=== PATIENT | female | born 1980 | race Hispanic/Latino ===

== ENCOUNTER 2017-05-24 13:22 | Outpatient (CLI) | payer MEDICAID ==
--- NOTE | 2017-05-24 17:04 | XRay Report ---
FINAL REPORT EXAM: XR SHOULDER 2+V RT HISTORY: SHOULDER PAIN TECHNIQUE: AP, Y, and oblique views of the right shoulder PRIORS: None. FINDINGS: There is no evidence of acute fracture or dislocation. Joint spaces are maintained and bony mineralization is normal. Soft tissues are unremarkable. IMPRESSION: No acute abnormality identified in the right shoulder.
== END 2017-05-24 13:23 | disposition home or self-care (01) ==
LOC: SPVIMAG 13:22
PROVIDERS: ATTEND Orthopaedic Surgery Sports Medicine
DX: M25.511 Pain in right shoulder (principal)

== ENCOUNTER 2018-07-20 05:55 | Observation (INO) | payer MEDICAID ==
[2018-07-20] MEDS ORDERED: ECOTRIN PO ONE (06:23)
[2018-07-20] MEDS ORDERED: NACL 0.9% 500 ML 500 ML IV SCH (07:00)
[2018-07-20] MEDS ORDERED: HEPARIN/NS 5000 UNIT/500ML(CATH LAB) 1,000 ML IR ONE (08:40)
[2018-07-20] MEDS: SUBLIMAZE ONE ×2 (09:04→09:12)
[2018-07-20] MEDS: VERSED ONE ×2 (09:04→09:12)
[2018-07-20] MEDS: NITROGLYCERIN SYRINGE 3 ML ONE ×2 (09:04→09:20)
[2018-07-20] MEDS: XYLOCAINE 2% INFILTRATI ONE ×2 (09:04→09:16)
[2018-07-20] MEDS: CALAN ONE ×2 (09:04→09:20)
[2018-07-20] MEDS: HEPARIN 10,000 UNITS/10 ML ONE ×3 (09:05→09:29)
[2018-07-20] MEDS ORDERED: PLAVIX ONE (09:42)
[2018-07-20] MEDS ORDERED: ALUM-MAG HYDROX-SIMETH 200-200-20MG/5ML ONE (09:42)
--- NOTE | 2018-07-20 11:45 | Cardiac Catherization Report ---
CARDIAC CATHETERIZATION REFERRING PHYSICIAN: 1. Tania Hinojosa MD 2. ____. INDICATION: The patient is a pleasant 38-year-old female with history of diabetes, hypertension, hyperlipidemia, obesity, who has an abnormal nuclear stress test, persistent chest pain and family history. She is referred for left heart catheterization. Risks, benefits, and potential alternatives explained at length prior to obtaining informed consent. The patient is already on multiple antianginals. Risks, benefits, and alternatives explained at length prior to obtaining informed consent. PROCEDURE IN DETAIL: The patient was brought to catheterization lab in postoperative state, prepped and draped in sterile fashion. Dimitri's test in right hand was normal. A 2 mL of 2% lidocaine used to anesthetize the right wrist. A standard 6-Icelandic hydrophilic sheath used to cannulate the right radial artery via modified Seldinger technique. All exchanges performed to exchange a J-tip guidewire. JL3.5 catheter used to engage the left main. No dampening or ventricularization. Cineangiography performed in all projections. JR4 catheter was used to cross the aortic valve under fluoroscopic guidance. Left ventriculography performed in 30 YOUNG and 30 THAI projections via hand injections, catheter flushed. Manual pullback performed with continuous pressure monitoring. Catheter used to engage the right coronary. No dampening or ventricularization. Cineangiography performed in ____ projections. Next, catheter removed from the body of wire. DATA: Aortic pressure is 130/80, LV pressure is 130, LVEDP of 15 mmHg. Left ventriculography revealed normal systolic performance with estimated ejection fraction of 55-60%. No evidence of aortic stenosis. CORONARY ANATOMY: Right dominant system. Left main without significant disease, bifurcates in left anterior descending and left circumflex. LAD is a moderate sized vessel, courses anterior intergroove, wraps around the apex. No significant disease in LAD or diagonal system. Left circumflex is a moderate sized vessel, courses AV groove. There is a 30-40% proximal left circumflex stenosis. There is 25% stenosis in the proximal OM1. Right coronary is a moderate sized vessel, courses AV groove. There is an ulcerated 90% stenosis in the distal RCA, tortuous. This 90% is ulcerated, hazy, certainly the culprit vessel. At this point, we turned our attention to PCI. A JR4 guide was used to engage the right coronary without difficulty. Heparin given. Abnormal ACT confirmed. Plavix and aspirin loaded. Prowater used to cross the lesion without difficulty, is a Resolute Shashi drug-eluting stent, 2.75 x 18 direct stented at 12 KARINE for 30 seconds. Excellent angiographic result. Intravascular ultrasound was performed, multiple passes were made. IVUS reveals a well expanded and well apposed with a stent, proximal and mid RCA without significant disease. Mild diffuse disease is noted though. Wire and IVUS removed. Excellent final angiographic result. No complications. The patient tolerated the procedure well. MARLEY 3 flow, 0% residual stenosis. I directly supervised the administration of moderate sedation from 9:10 a.m. to 9:46 a.m. CONCLUSIONS: 1. Severe single vessel coronary artery disease with culprit ulcerated hazy 90% distal right coronary stenosis. A. Successful IVUS guided PCI placement of drug-eluting stent (Resolute Shashi 2.75 x 18 mm) with excellent final angiographic and ultrasonographic results. 2. Nonobstructive disease in the left system including a 30-40% proximal left circumflex and 25% proximal OM1. 3. Patent left main, LAD. 4. Normal left ventricular systolic performance, estimated ejection fraction of 55-60%. 5. No evidence of aortic stenosis. 6. Normal LVEDP. At this point, the patient needs aggressive risk factor modification given how young she is and her underlying disease pattern needs aggressive therapy. Initiate Plavix, aspirin. Continue Imdur, beta chad, SRIDHAR, and continue high dose statin therapy. Follow up with Dr. José Miguel Hinojosa. Results of procedure explained at length to the patient and family. All questions and concerns were addressed. JOB# [id number] SBM/NTS
[2018-07-20] MEDS ORDERED: SUBLIMAZE IV ONE (12:01)
[2018-07-20] MEDS ORDERED: SUBLIMAZE ONE (12:33)
[2018-07-20] MEDS ORDERED: D50W (25GM) Syringe IV PRN (15:17)
--- NOTE | 2018-07-20 15:17 | Short Stay Summary ---
Short Stay Documentation Date of service: 07/20/18 - History H&P: obtained from office - Allergies and Medications Current Medications: Allergies acetaminophen [From Vicodin] Allergy (Unverified 07/20/18 05:56) Hives hydrocodone [From Vicodin] Allergy (Verified 07/20/18 12:04) Hives oxycodone Allergy (Verified 07/20/18 12:04) Hives Penicillins Allergy (Verified 07/20/18 12:04) Rash Home Medications Medication Instructions Recorded Confirmed Last Taken Type ALBUTEROL Inhaler (OR & NICU) 2 puff IH QID PRN 07/20/18 07/20/18 07/19/18 History [Proair] Advair 250-50 Diskus 1 inh PO BID 07/20/18 07/20/18 07/19/18 History Aspirin [Lo-Dose Aspirin EC] 81 mg PO DAILY 07/20/18 07/20/18 07/19/18 History Atorvastatin [Lipitor Tab] 80 mg PO QHS 07/20/18 07/20/18 07/19/18 History Cyclobenzaprine [Flexeril] 10 mg PO TID PRN 07/20/18 07/20/18 07/19/18 History Glimepiride [Amaryl] 4 mg PO QAM 07/20/18 07/20/18 07/19/18 History ISOSORBIDE MONOnitrate [Imdur ER] 30 mg PO DAILY 07/20/18 07/20/18 07/19/18 History Linagliptin [Tradjenta] 5 mg PO QDAY 07/20/18 07/20/18 07/19/18 History Lisinopril [Zestril TAB] 10 mg PO QDAY 07/20/18 07/20/18 07/19/18 History Metoprolol Succinate [Toprol Xl] 25 mg PO DAILY 07/20/18 07/20/18 07/19/18 History Naproxen [Naprosyn] 500 mg PO DAILY 07/20/18 07/20/18 07/19/18 History Omeprazole 20 mg PO DAILY 07/20/18 07/20/18 07/19/18 History Ziprasidone [Geodon] 60 mg PO BID 07/20/18 07/20/18 07/19/18 History levETIRAcetam [Keppra] 500 mg PO BID 07/20/18 07/20/18 07/19/18 History Active Medications Aspirin (Aspirin) 325 mg PO QDAY SRINIVASAN Atorvastatin Calcium (Lipitor) 80 mg PO QHS SRINIVASAN Clopidogrel Bisulfate (Plavix) 75 mg PO QDAY [facility] Sodium Chloride (Nacl 0.9% 500 Ml) 500 mls @ 50 mls/hr IV DIRECT SRINIVASAN Stop: 07/20/18 16:59 Last Admin: 07/20/18 07:03 Dose: 50 mls/hr Documented by: Isosorbide Mononitrate (Imdur) 30 mg PO DAILY SRINIVASAN Lisinopril (Zestril) 10 mg PO QDAY SRINIVASAN Metoprolol Succinate (Toprol Xl) 25 mg PO DAILY SRINIVASAN - Physical exam General appearance: no acute distress Integumentary: no rash, no growths, no abnormal pigmentation HEENT: Atraumatic, PERRLA Lungs: Clear to auscultation Heart: Regular rate, Normal S1, Normal S2 Gastrointestinal: normal, normoactive bowel sounds Extremities: no ischemia, pulses intact, pulses symmetrical Neurological: Normal gait, Normal speech, Strength at 5/5 X4 ext - Brief post op/procedure progress note Date of procedure: 07/20/18 Pre-op diagnosis: cp, abnormal stress test Post-op diagnosis: other (CAD) Procedure: LHC with PCI - see dictated cath report Anesthesia: local Estimated blood loss: none Condition: stable - Disposition Condition at discharge: Good Disposition: DC-01 TO HOME OR SELFCARE - Discharge Diagnoses (1) CAD (coronary artery disease) Status: Chronic (2) Stented coronary artery Status: Chronic (3) HTN (hypertension) Status: Chronic (4) Hyperlipidemia Status: Chronic (5) Diabetes Status: Chronic (6) Obesity Status: Chronic Short Stay Discharge Plan Activity: advance as tolerated Diet: low fat, low cholesterol, low salt, diabetic Wound: open to air, keep clean and dry, per your surgeon's advice Follow up with: HAROLDO OSBORNE [Other] - 7 Days EMILY COLEMAN MD [Staff Physician] - 7 Days ([facility], 07/28/2018 @ 1:45PM) Prescriptions: Clopidogrel [Plavix] 75 mg PO QDAY #30 tablet
[2018-07-20] MEDS: HumaLOG SUB-Q SCH ×2 (17:31→23:00)
[2018-07-20] MEDS ORDERED: NON-FORMULARY (Atorvastatin [Lipitor] 80 MG) PO SCH (22:00)
[2018-07-21 05:37] VITALS: BP 116/72
[2018-07-21 06:30] LABS: Basophils # (Auto) 0.1 K/mm3 (0.0-0.1); Basophils % (Auto) 0.8 % (0.0-1.8); Eosinophils # (Auto) 0.3 K/mm3 (0.0-0.4); Eosinophils % (Auto) 4.4 % (0.0-4.3); Hematocrit 39.6 % (30.3-42.9); Hemoglobin 13.2 gm/dl (10.1-14.3); Lymphocytes # (Auto) 2.6 K/mm3 (1.2-5.4); Lymphocytes % (Auto) 37.8 % (13.4-35.0); Mean Corpuscular HGB Conc 33 % (30-34); Mean Corpuscular Volume 92 fl (79-97); Monocytes # (Auto) 0.6 K/mm3 (0.0-0.8); Monocytes % (Auto) 9.4 % (0.0-7.3); Platelet Count 263 K/mm3 (140-440); Red Blood Count 4.32 M/mm3 (3.65-5.03)
[2018-07-21 06:51] LABS: Creatine Kinase MB 2.2 ng/mL (0.0-4.0)
[2018-07-21 06:54] LABS: BUN/Creatinine Ratio 13; Blood Urea Nitrogen 8 mg/dL (7-17); Calcium 8.6 mg/dL (8.4-10.2); Hemolysis Index 8
--- NOTE | 2018-07-21 08:31 | XRay Report ---
AP CHEST: HISTORY: chest pain AP view of the chest demonstrates a normal mediastinal and cardiac contour with clear lungs and normal bony and soft tissue structures. IMPRESSION: Unremarkable AP chest.
[2018-07-21] MEDS: HumaLOG SUB-Q SCH ×2 (09:19→09:34)
[2018-07-21] MEDS ORDERED: PLAVIX PO SCH (10:00)
[2018-07-21] MEDS ORDERED: ZESTRIL PO SCH (10:00)
[2018-07-21] MEDS ORDERED: IMDUR PO SCH (10:00)
[2018-07-21] MEDS ORDERED: ASPIRIN PO SCH (10:00)
[2018-07-21] MEDS ORDERED: TOPROL XL PO SCH (10:00)
--- NOTE | 2018-07-21 10:53 | Progress Note ---
Assessment and Plan no cp ecg wnl rra site c/d/i no sxs dapt compliance stressed w/ pt at length may dc home f/u with Dr Linus Hinojosa Objective Vital Signs Temp Pulse Pulse Resp Resp BP BP 07/21/18 09:13 97.9 F 07/21/18 04:05 98.4 F 76 12 116/72 07/21/18 00:00 71 07/20/18 23:19 98.0 F 83 12 110/66 07/20/18 22:00 20 07/20/18 19:36 98.3 F 83 12 100/70 07/20/18 18:12 89 07/20/18 17:31 97.5 F L 07/20/18 17:29 85 18 127/75 07/20/18 16:15 80 18 116/79 07/20/18 16:00 79 07/20/18 15:00 87 18 114/71 07/20/18 14:00 88 18 121/76 07/20/18 13:30 84 18 117/77 07/20/18 13:00 91 H 17 125/83 07/20/18 12:38 15 07/20/18 12:30 98 H 18 125/82 07/20/18 12:00 101 H 19 123/80 07/20/18 11:30 98 H 23 137/82 07/20/18 11:00 92 H 21 119/76 BP Pulse Ox 07/21/18 09:13 07/21/18 04:05 95 07/21/18 00:00 07/20/18 23:19 95 07/20/18 22:00 07/20/18 19:36 96 07/20/18 18:12 114/75 07/20/18 17:31 07/20/18 17:29 97 07/20/18 16:15 98 07/20/18 16:00 07/20/18 15:00 98 07/20/18 14:00 98 07/20/18 13:30 96 07/20/18 13:00 94 07/20/18 12:38 07/20/18 12:30 97 07/20/18 12:00 98 07/20/18 11:30 98 07/20/18 11:00 97 - Labs and Meds Cardiac Enzymes 07/21/18 Range/Units 04:44 CK-MB (CK-2) 2.2 (0.0-4.0) ng/mL CBC 07/21/18 Range/Units 04:44 WBC 6.8 (4.5-11.0) K/mm3 RBC 4.32 (3.65-5.03) M/mm3 Hgb 13.2 (10.1-14.3) gm/dl Hct 39.6 (30.3-42.9) % Plt Count 263 (140-440) K/mm3 Lymph # 2.6 (1.2-5.4) K/mm3 [place] # 0.6 (0.0-0.8) K/mm3 Eos # 0.3 (0.0-0.4) K/mm3 Baso # 0.1 (0.0-0.1) K/mm3 Comprehensive Metabolic Panel 07/21/18 Range/Units 04:44 Sodium 138 (137-145) mmol/L Potassium 4.1 (3.6-5.0) mmol/L Chloride 104.0 (98-107) mmol/L Carbon Dioxide 22 (22-30) mmol/L BUN 8 (7-17) mg/dL Creatinine 0.6 L (0.7-1.2) mg/dL Glucose 108 H (65-100) mg/dL Calcium 8.6 (8.4-10.2) mg/dL
== END 2018-07-21 11:40 | disposition home or self-care (01) ==
LOC: CATHLABREC 05:55 → 4A 11:07
PROVIDERS: ADMIT Internal Medicine; ATTEND Internal Medicine
DX: I25.110 Atherosclerotic heart disease of native coronary artery with unstable angina pectoris (principal); I10 Essential (primary) hypertension; E78.5 Hyperlipidemia, unspecified; E11.9 Type 2 diabetes mellitus without complications; E66.9 Obesity, unspecified; F31.9 Bipolar disorder, unspecified; F17.210 Nicotine dependence, cigarettes, uncomplicated; Z95.5 Presence of coronary angioplasty implant and graft; Z88.0 Allergy status to penicillin; Z88.8 Allergy status to other drugs, medicaments and biological substances
CPT/HCPCS: 36415; 71045; 80048; 82550; 82553; 82962; 84484; 85025; 85347; 92978; 93005; 93010; 93458; 96372; 99406; A9270; C1753; C1769; C1874; C1887; C1894; C9600; G0378; J1644; J2250; J3010; J7040; 92928; Q9967

== ENCOUNTER 2019-01-05 06:20 | Day surgery (SDC) | payer MEDICAID ==
[2019-01-05] MEDS ORDERED: PLAVIX PO ONE (06:33)
[2019-01-05] MEDS ORDERED: NACL 0.9% 500 ML 500 ML ONE (06:40)
[2019-01-05] MEDS ORDERED: HALFPRIN EC PO ONE (06:41)
[2019-01-05] MEDS ORDERED: NACL 0.9% 500 ML 500 ML IV SCH (07:00)
[2019-01-05] MEDS ORDERED: HEPARIN 10,000 UNITS/10 ML ONE (07:57)
[2019-01-05] MEDS ORDERED: CALAN ONE (07:57)
[2019-01-05] MEDS ORDERED: NITROGLYCERIN SYRINGE 3 ML ONE (07:58)
[2019-01-05] MEDS: VERSED ONE ×2 (08:07→08:13)
[2019-01-05] MEDS: SUBLIMAZE ONE ×2 (08:07→08:13)
[2019-01-05] MEDS: XYLOCAINE 2% INFILTRATI ONE ×2 (08:08→08:15)
[2019-01-05] MEDS: HEPARIN/NS 5000 UNIT/500ML(CATH LAB) 1,000 ML IR ONE ×2 (08:08→08:15)
--- NOTE | 2019-01-05 09:21 | Cardiac Catherization Report ---
CARDIAC CATHETERIZATION REFERRING PHYSICIAN: Dr. José Miguel Hinojosa. INDICATION FOR PROCEDURE: The patient is a very pleasant 38-year-old female with multiple medical problems, who recently had a PCI of distal right coronary in June, has recurrent typical chest pain, referred for repeat left heart catheterization. Risks, benefits, and alternatives discussed at length prior to obtaining informed consent. PROCEDURE IN DETAIL: The patient was brought to catheterization lab in a postabsorptive state, prepped and draped in sterile fashion. Dimitri's test in right hand was normal. A 2 mL of 2% lidocaine used to anesthetize the right wrist. A standard 6-Nigerien hydrophilic sheath used to cannulate the right radial artery via modified Seldinger technique. All exchanges performed to exchange a J-tip guidewire. JL3.5 catheter used to engage the left main. No dampening or ventricularization. Cineangiography performed in all projections. JR4 catheter used to cross the aortic valve under fluoroscopic guidance. Left ventriculography performed in 30 YOUNG and 30 YORUBA projections via hand injections, catheter flushed. Manual pullback performed with continuous pressure monitoring. Catheter used to engage the right coronary. No dampening or ventricularization. Cineangiography performed in all projections. Next, catheter removed from the body over wire, sheath removed. Manual pressure used to achieve hemostasis. I directly supervised the administration of moderate sedation from 8:10 a.m. to 8:37 a.m. with fentanyl and Versed. CORONARY ANATOMY: This is a right dominant system. Right coronary is a moderate sized vessel, courses AV groove, distally bifurcates in posterior descending and posterolateral branch. The stent in the distal right coronary is widely patent. Diffuse small vessel disease is noted in the distal right coronary system. Left main is without significant disease, trifurcates into left anterior descending and left circumflex and ramus intermedius. Left circumflex, moderate sized vessel, courses AV groove. There is a 20-30% stenosis in the mid left circumflex, moderate diffuse small vessel disease noted in the distal left circumflex system. LAD is a moderate sized vessel, courses anterior intergroove, wraps around the apex. It is a moderate sized vessel. Normal tapering distally. No significant disease in the LAD or diagonal system. MARLEY 3 flow is noted throughout the system. CONCLUSIONS: 1. Mild to moderate nonobstructive epicardial coronary disease in this right dominant system. A. Distal right coronary stent patent. B. There is moderate diffuse distal small vessel disease noted. 2. Normal left ventricular systolic performance (estimated ejection fraction of 50-55%). 3. No evidence of aortic stenosis. 4. Normal LVEDP. At this point, I would recommend intensifying medical therapy. Continue aspirin, Imdur, Lipitor, Plavix and beta blockade. I would consider adding Ranexa. Discussed smoking cessation at length spent (~5 minutes) on this risk factor modification. Follow with Dr. José Miguel Hinojosa in the office. Standard radial care. JOB# [id number] VERONICA/SONIA GRAHAM
[2019-01-05] MEDS ORDERED: BABY ASPIRIN PO SCH (10:00)
--- NOTE | 2019-01-05 12:18 | Short Stay Summary ---
Short Stay Documentation Date of service: 01/05/19 - History H&P: obtained from office - Allergies and Medications Current Medications: Allergies acetaminophen [From Vicodin] Allergy (Unverified 07/20/18 05:56) Hives hydrocodone [From Vicodin] Allergy (Verified 07/20/18 12:04) Hives oxycodone Allergy (Verified 07/20/18 12:04) Hives Penicillins Allergy (Verified 07/20/18 12:04) Rash Home Medications Medication Instructions Recorded Confirmed Last Taken Type Atorvastatin [Lipitor] 80 mg PO QHS 07/20/18 01/05/19 01/04/19 History 80mg Clopidogrel [Plavix] 75 mg PO QDAY #30 tablet 07/20/18 01/05/19 01/04/19 Rx 75mg Glimepiride [Amaryl] 4 mg PO QAM 07/20/18 01/05/19 01/04/19 History 4mg ISOSORBIDE MONOnitrate [Imdur ER] 30 mg PO DAILY 07/20/18 01/05/19 01/04/19 History 30mg Linagliptin [Tradjenta] 5 mg PO QDAY 07/20/18 01/05/19 01/04/19 History 5mg Lisinopril [Zestril TAB] 10 mg PO QDAY 07/20/18 01/05/19 01/04/19 History 10mg Naproxen [Naprosyn] 500 mg PO DAILY 07/20/18 01/05/19 01/04/19 History 500mg Omeprazole 20 mg PO DAILY 07/20/18 01/05/19 01/04/19 History 20mg levETIRAcetam [Keppra] 1,000 mg PO BID 07/20/18 01/05/19 01/04/19 History 1000mg Aspirin 81 mg PO QDAY 01/05/19 01/05/19 01/04/19 History 81mg Hydroxyzine HCl [hydrOXYzine] 25 mg PO DAILY 01/05/19 01/05/19 01/04/19 History 25mg Ketoconazole 2% [Nizoral] 1 inch TRANSDERMA DAILY 01/05/19 01/05/19 01/04/19 History 1 Metoprolol Succinate [Toprol Xl] 25 mg PO DAILY 01/05/19 01/05/19 01/04/19 History 25mg Symbicort 160-4.5 Mcg Inhaler 2 puff INHALATION BID 01/05/19 01/05/19 01/04/19 History 2 traZODone [Desyrel] 100 mg PO DAILY 01/05/19 01/05/19 01/04/19 History 100mg Active Medications Aspirin (Baby Aspirin) 81 mg PO QDAY SRINIVASAN Sodium Chloride (Nacl 0.9% 500 Ml) 500 mls @ 50 mls/hr IV DIRECT SRINIVASAN Stop: 01/05/19 16:59 Last Admin: 01/05/19 06:48 Dose: 50 mls/hr Documented by: - Brief post op/procedure progress note Date of procedure: 01/05/19 Pre-op diagnosis: CAD Post-op diagnosis: same Procedure: [facility] - see dictated cath report Anesthesia: local Estimated blood loss: none Condition: stable - Disposition Condition at discharge: Good Disposition: DC-01 TO HOME OR SELFCARE - Discharge Diagnoses (1) CAD (coronary artery disease) Status: Chronic (2) Stented coronary artery Status: Chronic (3) Diabetes Status: Chronic (4) HTN (hypertension) Status: Chronic (5) Hyperlipidemia Status: Chronic (6) Obesity Status: Chronic Short Stay Discharge Plan Activity: advance as tolerated Diet: low fat, low cholesterol, low salt, diabetic Wound: open to air, keep clean and dry, per your surgeon's advice Follow up with: HAROLDO OSBORNE [Other] - 7 Days EMILY COLEMAN MD [Staff Physician] - 7 Days
[2019-01-05 13:19] VITALS: BP 111/74
== END 2019-01-05 13:00 | disposition home or self-care (01) ==
LOC: CATHLABREC 06:20
PROVIDERS: ATTEND Internal Medicine
DX: I25.10 Atherosclerotic heart disease of native coronary artery without angina pectoris (principal); I10 Essential (primary) hypertension; E78.5 Hyperlipidemia, unspecified; E11.9 Type 2 diabetes mellitus without complications; E66.9 Obesity, unspecified; J44.9 Chronic obstructive pulmonary disease, unspecified; G47.30 Sleep apnea, unspecified; M19.90 Unspecified osteoarthritis, unspecified site; F17.210 Nicotine dependence, cigarettes, uncomplicated; F31.9 Bipolar disorder, unspecified; Z88.0 Allergy status to penicillin; Z79.899 Other long term (current) drug therapy; Z79.82 Long term (current) use of aspirin; Z95.5 Presence of coronary angioplasty implant and graft; Z68.39 Body mass index [BMI] 39.0-39.9, adult; Z98.890 Other specified postprocedural states; Z80.8 Family history of malignant neoplasm of other organs or systems; Z82.49 Family history of ischemic heart disease and other diseases of the circulatory system; Z88.8 Allergy status to other drugs, medicaments and biological substances
CPT/HCPCS: 82962; 93005; 93010; 93458; 99156; 99157; C1887; C1894; J1644; J2250; J3010; J7040; Q9967

== ENCOUNTER 2020-06-04 06:46 | Observation (INO) | payer MEDICAID ==
[2020-06-04] MEDS ORDERED: ASPIRIN EC 325 MG TAB PO NR (07:24)
[2020-06-04 07:40] LABS: Basophils # (Auto) 0.1 K/mm3 (0.0-0.1); Eosinophils # (Auto) 0.2 K/mm3 (0.0-0.4); Eosinophils % (Auto) 4.3 % (0.0-4.3); Hematocrit 41.1 % (30.3-42.9); Hemoglobin 13.5 gm/dl (10.1-14.3); Lymphocytes # (Auto) 2.1 K/mm3 (1.2-5.4); Lymphocytes % (Auto) 36.7 % (13.4-35.0); Mean Corpuscular HGB Conc 33 % (30-34); Mean Corpuscular Volume 90 fl (79-97); Monocytes # (Auto) 0.5 K/mm3 (0.0-0.8); Monocytes % (Auto) 9.1 % (0.0-7.3); Platelet Count 233 K/mm3 (140-440); Red Blood Count 4.59 M/mm3 (3.65-5.03); Red Cell Distribution Width 14.1 % (13.2-15.2)
[2020-06-04 07:52] LABS: Blood Urea Nitrogen 7 mg/dL (7-17); Calcium 8.6 mg/dL (8.4-10.2); Hemolysis Index 2
[2020-06-04 07:54] LABS: BUN/Creatinine Ratio 10
[2020-06-04 08:00] LABS: INR 0.87 (0.87-1.13)
[2020-06-04] MEDS ORDERED: SODIUM CHLORIDE 0.9% 500 ML 500 ML IV SCH (08:00)
[2020-06-04] MEDS ORDERED: LIDOCAINE (2%) 20 MG/1 ML VIAL 20 ML MDV INFILTRATI ONE (08:16)
[2020-06-04] MEDS ORDERED: VERAPAMIL 5 MG/2 ML INJ ONE (08:16)
[2020-06-04] MEDS ORDERED: HEPARIN/NS 5000 UNIT/500ML 1,000 ML IR ONE (08:16)
[2020-06-04] MEDS ORDERED: NITROGLYCERIN SYRINGE 0 ML ONE (08:16)
[2020-06-04] MEDS ORDERED: MIDAZOLAM 2 MG/2 ML INJ ONE (08:17)
[2020-06-04] MEDS ORDERED: fentaNYL 100 MCG/2 ML INJ ONE (08:17)
[2020-06-04] MEDS ORDERED: ONDANSETRON 4 MG/2 ML INJ ONE (09:10)
[2020-06-04] MEDS: HEPARIN 10,000 UNITS/10 ML VIAL ONE ×2 (09:19→09:33)
[2020-06-04] MEDS ORDERED: HEPARIN/NS 5000 UNIT/500ML 500 ML IR ONE (09:30)
[2020-06-04] MEDS ORDERED: HEPARIN 10,000 UNITS/10 ML VIAL ONE (09:30)
[2020-06-04] MEDS ORDERED: ATROPINE 0.1% (1 MG/10 ML) CARDIAC SYRINGE ONE (09:44)
[2020-06-04] MEDS ORDERED: CLOPIDOGREL 75 MG TAB PO NR (11:23)
[2020-06-04] MEDS ORDERED: NITROGLYCERIN 0.4 MG TAB SUBL SL PRN (12:32)
[2020-06-04] MEDS ORDERED: DEXTROSE 50% IN WATER (25GM) 50 ML SYRINGE IV PRN (12:38)
[2020-06-04] MEDS ORDERED: ACETAMINOPHEN 500 MG TAB PO ONE (13:19)
[2020-06-04] MEDS: INSULIN LISPRO 100 UNIT/ML SUB-Q SCH (18:43)
[2020-06-04] MEDS: BUDESONIDE 0.5 MG/2 ML NEBU IH SCH (20:59)
[2020-06-04] MEDS: ARFORMOTEROL 15 MCG/2 ML NEBU IH SCH (20:59)
[2020-06-04] MEDS ORDERED: NON-FORMULARY EACH (Symbicort 160-4.5 Mcg Inhaler 2 PUFF) INHALATION SCH (22:00)
[2020-06-04] MEDS: levETIRAcetam 500 MG TAB PO SCH (22:00)
[2020-06-04] MEDS ORDERED: NON-FORMULARY EACH (Atorvastatin [Lipitor] 80 MG Tablet) PO SCH (22:00)
[2020-06-05] MEDS: INSULIN LISPRO 100 UNIT/ML SUB-Q SCH ×3 (01:30→13:19)
[2020-06-05 07:18] LABS: Basophils % (Auto) 0.8 % (0.0-1.8); Eosinophils # (Auto) 0.2 K/mm3 (0.0-0.4); Eosinophils % (Auto) 3.8 % (0.0-4.3); Hematocrit 42.1 % (30.3-42.9); Hemoglobin 13.8 gm/dl (10.1-14.3); Lymphocytes # (Auto) 1.9 K/mm3 (1.2-5.4); Lymphocytes % (Auto) 34.8 % (13.4-35.0); Mean Corpuscular HGB Conc 33 % (30-34); Mean Corpuscular Volume 89 fl (79-97); Monocytes # (Auto) 0.5 K/mm3 (0.0-0.8); Monocytes % (Auto) 9.2 % (0.0-7.3); Platelet Count 235 K/mm3 (140-440); Red Blood Count 4.72 M/mm3 (3.65-5.03); Red Cell Distribution Width 14.1 % (13.2-15.2)
[2020-06-05 07:37] LABS: Creatine Kinase MB 1.6 ng/mL (0.0-4.0)
[2020-06-05 07:38] LABS: Blood Urea Nitrogen 8 mg/dL (7-17); Calcium 8.6 mg/dL (8.4-10.2); Hemolysis Index 1
[2020-06-05 07:46] LABS: BUN/Creatinine Ratio 13
--- NOTE | 2020-06-05 08:20 | XRay Report ---
CHEST 1 VIEW INDICATION: post pci. COMPARISON: 07/21/2018 FINDINGS: Support devices: None. Heart: Within normal limits. Lungs/Pleura: No acute air space or interstitial disease. Additional findings: None. IMPRESSION: No acute findings. Signer Name: Markus Cote Jr, MD Signed: 06/05/2020 8:15 AM Workstation Name: [id number]
[2020-06-05] MEDS: BUDESONIDE 0.5 MG/2 ML NEBU IH SCH (09:09)
[2020-06-05] MEDS: ARFORMOTEROL 15 MCG/2 ML NEBU IH SCH (09:09)
[2020-06-05] MEDS ORDERED: NON-FORMULARY EACH (Metoprolol Succinate [Toprol Xl] 200 MG Tab.Er.24h) PO SCH (10:00)
[2020-06-05] MEDS ORDERED: LISINOPRIL 10 MG TAB PO SCH (10:00)
[2020-06-05] MEDS ORDERED: ASPIRIN EC 325 MG TAB PO SCH (10:00)
[2020-06-05] MEDS ORDERED: CLOPIDOGREL 75 MG TAB PO SCH ×2 (10:00)
[2020-06-05] MEDS ORDERED: METOPROLOL SUCCINATE XL 25 MG TAB PO SCH (10:00)
[2020-06-05] MEDS: levETIRAcetam 500 MG TAB PO SCH (10:38)
--- NOTE | 2020-06-05 11:32 | Short Stay Summary ---
Short Stay Documentation Date of service: 06/05/20 - History H&P: obtained from office - Allergies and Medications Current Medications: Allergies hydrocodone [From Vicodin] Allergy (Verified 07/20/18 12:04) Hives oxycodone Allergy (Verified 07/20/18 12:04) Hives Penicillins Allergy (Verified 07/20/18 12:04) Rash Home Medications Medication Instructions Recorded Confirmed Last Taken Type Atorvastatin [Lipitor] 80 mg PO QHS 07/20/18 06/04/20 06/03/20 History Clopidogrel [Plavix] 75 mg PO QDAY #30 tablet 07/20/18 06/04/20 06/03/20 Rx Glimepiride [Amaryl] 4 mg PO QAM 07/20/18 06/04/20 06/03/20 History ISOSORBIDE MONOnitrate [Imdur ER] 30 mg PO DAILY 07/20/18 06/04/20 06/03/20 History levETIRAcetam [Keppra] 1,000 mg PO BID 07/20/18 06/04/20 06/03/20 History lisinopriL [Zestril TAB] 10 mg PO QDAY 07/20/18 06/04/20 06/03/20 History Aspirin 81 mg PO QDAY 01/05/19 06/04/20 06/03/20 History Metoprolol Succinate [Toprol Xl] 25 mg PO DAILY 01/05/19 06/04/20 06/03/20 History Symbicort 160-4.5 Mcg Inhaler 2 puff INHALATION BID 01/05/19 06/04/20 06/03/20 History traZODone [Desyrel] 50 mg PO DAILY 01/05/19 06/04/20 06/03/20 History Doxepin [SINEquan] 25 mg PO QHS 06/04/20 06/04/20 06/03/20 History Nitroglycerin [Nitrostat] 0.4 mg SL Q5M PRN 06/04/20 06/04/20 06/03/20 History Sitagliptin Phosphate [Januvia] 25 mg PO DAILY 06/04/20 06/04/20 06/03/20 History Active Medications Arformoterol Tartrate (Arformoterol 15 Mcg/2 Ml Nebu) 15 mcg IH Q12HRT SRINIVASAN Last Admin: 06/05/20 09:09 Dose: 15 mcg Documented by: Aspirin (Aspirin Ec 325 Mg Tab) 325 mg PO QDAY [facility] Last Admin: 06/05/20 10:38 Dose: 325 mg Documented by: Atorvastatin Calcium (Atorvastatin 40 Mg Tab) 80 mg PO QHS [facility] Last Admin: 06/04/20 22:00 Dose: 80 mg Documented by: Budesonide (Budesonide 0.5 Mg/2 Ml Nebu) 0.5 mg IH Q12HRT [facility] Last Admin: 06/05/20 09:09 Dose: 0.5 mg Documented by: Clopidogrel Bisulfate (Clopidogrel 75 Mg Tab) 75 mg PO QDAY [facility] Last Admin: 06/05/20 10:38 Dose: 75 mg Documented by: Dextrose (Dextrose 50% In Water (25gm) 50 Ml Syringe) 50 ml IV Q30MIN PRN; Protocol PRN Reason: Hypoglycemia Insulin Human Lispro (Insulin Lispro 100 Unit/Ml) 0 unit SUB-Q ACHS [facility]; Protocol Last Admin: 06/05/20 08:31 Dose: Not Given Documented by: Isosorbide Mononitrate (Isosorbide Mononitrate Er 30 Mg Tab) 30 mg PO DAILY [facility] Last Admin: 06/05/20 10:38 Dose: 30 mg Documented by: Levetiracetam (Levetiracetam 500 Mg Tab) 1,000 mg PO BID [facility] Last Admin: 06/05/20 10:38 Dose: 1,000 mg Documented by: Lisinopril (Lisinopril 10 Mg Tab) 10 mg PO QDAY [facility] Last Admin: 06/05/20 10:39 Dose: 10 mg Documented by: Metoprolol Succinate (Metoprolol Succinate Xl 25 Mg Tab) 25 mg PO QDAY [facility] Last Admin: 06/05/20 10:38 Dose: 25 mg Documented by: Nitroglycerin (Nitroglycerin 0.4 Mg Tab Subl) 0.4 mg SL Q5M PRN PRN Reason: Chest Pain - Physical exam General appearance: no acute distress Integumentary: no rash, no growths, no abnormal pigmentation, other ([facility] site c/d/i, no bleeding or hematoma ) HEENT: Atraumatic, PERRLA Lungs: Clear to auscultation Heart: Regular rate, Normal S1, Normal S2 Gastrointestinal: normal, normoactive bowel sounds Extremities: no ischemia, pulses intact, pulses symmetrical Neurological: Normal gait, Normal speech - Brief post op/procedure progress note Date of procedure: 06/04/20 Pre-op diagnosis: CAD Post-op diagnosis: same Procedure: LHC with PCI - see dictated cath report Anesthesia: local Estimated blood loss: none Condition: stable - Disposition Condition at discharge: Good Disposition: DC-01 TO HOME OR SELFCARE - Discharge Diagnoses (1) CAD (coronary artery disease) Status: Chronic (2) Stented coronary artery Status: Chronic (3) Diabetes Status: Chronic (4) HTN (hypertension) Status: Chronic (5) Hyperlipidemia Status: Chronic (6) Obesity Status: Chronic Short Stay Discharge Plan Activity: advance as tolerated Diet: low fat, low cholesterol, low salt Wound: open to air, keep clean and dry, per your surgeon's advice Follow up with: ROSARIO SHAW [Other] - 7 Days EMILY COLEMAN MD [Staff Physician] - 7 Days
[2020-06-05 13:27] VITALS: BP 103/71
--- NOTE | 2020-06-06 12:11 | Cardiac Catherization Report ---
CARDIAC CATHETERIZATION AND CORONARY INTERVENTION REPORT INDICATION FOR PROCEDURE: The patient is a 40-year-old female, is being followed by Dr. José Miguel Hinojosa in the office. She is having chest pains with no significant ischemia on the perfusion images. Because of this, she is scheduled for elective cardiac catheterization for definitive diagnosis and treatment. The patient has a history of the coronary intervention performed a few years ago of the distal RCA. DESCRIPTION OF PROCEDURE: The patient was brought to the catheterization laboratory in a fasting condition. The patient was evaluated for moderate sedation and was felt to be appropriate candidate for moderate sedation and received IV Versed and fentanyl starting at 10:15 a.m. Subsequently, the patient was prepared in a standard fashion. Sterile drapes were applied. Local anesthesia was given in the right wrist area and right radial artery puncture was made using 21-gauge arterial puncture needle. A 5-[place]er slender sheath was introduced. Using 5-[place]er multipurpose catheter, angiograms of the left ventricle was performed using YOUNG projection. Subsequently, angiograms of the left coronary artery and right coronary artery were obtained and following findings were noted. HEMODYNAMICS: 1. Opening aortic pressure 103/67, left ventricular pressure 103/19. No gradient across the aortic valve. Estimated ejection fraction 55%. 2. Left ventriculogram done in YOUNG projection showed normal sized left ventricle with normal contractility. End-diastolic and systolic volumes are normal. Mitral regurgitation could not be evaluated because of limited amount of dye injected. Estimated ejection fraction 55%. 3. Left coronary artery arises normally from left coronary cusp. Left main without significant disease. LAD and its branches showed minor irregularities. Circumflex artery showed 50% smooth lesion in the mid part of the OM1. The rest of the circumflex artery without significant disease. 4. Right coronary artery dominant vessel shows patent stent; however, there is evidence of stent fracture in the distal part along with severe focal stenosis in the distal part of the stent approaching 80% and it appears to be under expanded on fluoroscopy. Rest of the RCA without significant disease. MARLEY 3 flow noted. FINAL IMPRESSION: Normal sized left ventricle with normal contractility, end diastolic pressure mildly elevated. Left coronary system shows mild irregularities with 50% mid obtuse marginal 1 lesion; however, this lesion was found to be in previous catheterization more or less unchanged. Presently RCA shows severe focal in-stent restenosis in the distal part of the stent, which probably is under expanded and may have affected. Considering this, we will proceed with intervention of this lesion. CORONARY INTERVENTION OF THE DISTAL RCA THAT IS IN-STENT RESTENOSIS: Angiographic pictures showed evidence of severe in-stent restenosis, which is focal 80%. Stent appears to be under expanded along with question of fracture. The patient has indwelling slender sheath in place in the right radial artery. A 6-[place]er radial JR4 guiding catheter was used to engage the right coronary artery. The patient received IV heparin as anticoagulant. A 0.014 inch Woodruff XT guidewire was advanced into distal RCA without difficulty. Lesion was dilated with 2.7 x 10 mm balloon followed by placement of a 2.7 x 12 mm Resolute [facility] stent inflated up to 24 atmospheres with good result. Lesion was reduced from 80% to 0%. MARLEY 3 flow was noted pre and post-procedure. It is to be noted stent extended into the proximal part of the PDA secondary to movement; however, patent left ventricular branch noted. FINAL IMPRESSION: Uncomplicated drug-eluting stent placement after balloon angioplasty for severe focal in-stent restenosis into the distal right coronary artery. Drug eluting stent was inserted without complications of dissection or perforation or distal embolization. The patient tolerated the procedure well. No untoward complications were noted. The patient is already on Plavix, will continue the same. Continue aspirin and Plavix. The patient was monitored throughout the procedure with EKG monitoring, pulse oximetry, and hemodynamic monitoring. The patient tolerated the moderate sedation well. The patient's moderate sedation started at 9:15 a.m. and ended at 10:00 a.m. At the end of the procedure, the patient is breathing normally, communicating normally with no focal deficits. The patient was transferred to the outpatient area in stable condition. The patient will be continued on aspirin 325 mg in addition to Plavix 75 mg and medical therapy. The patient will be given IV heparin for 12 hours and observed in telemetry. Also, a radial band will be applied for hemostasis. Findings were explained to the patient. JOB# [id number] DEBBY/SONIA GRAHAM
== END 2020-06-05 13:37 | disposition home or self-care (01) ==
LOC: CATHLABREC 06:46 → 4A 12:20
PROVIDERS: ADMIT Internal Medicine; ATTEND Internal Medicine
DX: I25.10 Atherosclerotic heart disease of native coronary artery without angina pectoris (principal); I10 Essential (primary) hypertension; E78.2 Mixed hyperlipidemia; E66.9 Obesity, unspecified; G47.33 Obstructive sleep apnea (adult) (pediatric); E11.9 Type 2 diabetes mellitus without complications; Z98.61 Coronary angioplasty status; Z68.35 Body mass index [BMI] 35.0-35.9, adult; Z79.82 Long term (current) use of aspirin; Z79.4 Long term (current) use of insulin; Z95.1 Presence of aortocoronary bypass graft; Z79.899 Other long term (current) drug therapy
CPT/HCPCS: 36415; 71045; 80048; 82550; 82553; 82962; 84484; 85025; 85610; 85730; 93005; 93458; 94640; A9270; C1725; C1769; C1874; C1887; C1894; C9600; G0378; J1644; J2250; J3010; J7040; 92928; J0461; J2405; Q9967